=== PATIENT | male | born 1975 | race Caucasian/White ===

== ENCOUNTER 2017-07-02 12:39 | Emergency (ER) | payer MEDICAID ==
[2017-07-02 13:13] LABS: BASOPHILS # (AUTO) 0.1 10^3/uL (0.0-0.1); BASOPHILS % (AUTO) 0.8 %; EOSINOPHILS # (AUTO) 0.2 10^3/uL (0.0-0.7); EOSINOPHILS % (AUTO) 2.5 %; HGB - HEMOGLOBIN 16.1 g/dL (14.0-18.0); LYMPHOCYTES % (AUTO) 34.2 %; MEAN CORPUSCULAR HEMOGLOBIN 31.7 pg (27.0-31.0); MEAN CORPUSCULAR HGB CONC 34.9 g/dL (32.0-36.0); MEAN CORPUSCULAR VOLUME 90.7 fL (80.0-94.0); MEAN PLATELET VOLUME 7.9 fL (7.4-11.4); MONOCYTES # (AUTO) 0.9 10^3/uL (0.0-1.0); MONOCYTES % (AUTO) 9.8 %; NEUTROPHILS # (AUTO) 4.6 10^3/uL (1.5-6.6); NEUTROPHILS % (AUTO) 52.7 %; PLT - PLATELET COUNT 240 10^3/uL (130-450); RED BLOOD COUNT 5.08 10^6/uL (4.70-6.10); RED CELL DISTRIBUTION WIDTH 12.8 % (12.0-15.0); WHITE BLOOD COUNT 8.7 x10^3/uL (4.8-10.8)
--- NOTE | 2017-07-02 13:38 | ED Physician Documentation ---
History of Present Illness - Stated complaint Stated Complaint: SOA/CHEST PX - Chief complaint Chief Complaint: Cardiac - Additonal information Additional information: hx from pt 42 male to ER with int CP and SOA for about a week occurs both at rest and with exertion per pt last up to a minute at a time - per longer than that described as ant left chest discomfort rad to l arm associated soa dizziness diaphoresis resolves spont no fever cough no abd pain NV also has had some LLE popliteal discomfort and some inguinal region upper thigh discomfort no hx CAD - no HTN HLD DM, ex smoker - mom dies of ACS age 50 no hx DVT no recent travel or surgery Review of Systems Constitutional: denies: Fever, Chills Cardiac: reports: Chest pain / pressure, Calf pain Respiratory: reports: Dyspnea GI: denies: Abdominal Pain, Nausea, Vomiting Skin: denies: Rash Musculoskeletal: reports: Extremity pain Neurologic: denies: Generalized weakness Endocrine: denies: Easy bruising / bleeding Immunocompromised: denies: Immunocompromised PD PAST MEDICAL HISTORY - Past Medical History Past Medical History: Yes Respiratory: Asthma GI: GERD - Past Surgical History Ortho: Other - Present Medications Home Medications: Ambulatory Orders Medication Instructions Recorded Confirmed No Known Home Medications [No 07/02/17 07/02/17 Known Home Medications] - Allergies Allergies/Adverse Reactions: Allergies Allergy/AdvReac Type Severity Reaction Status Date / Time No Known Drug Allergies Allergy Verified 07/02/17 12:45 - Social History Does the pt smoke?: No Smoking Status: Never smoker Does the pt drink ETOH?: No Does the pt have substance abuse?: No - Immunizations Immunizations are current?: Yes PD ED PE NORMAL - Vitals Vital signs reviewed: Yes - General General: Alert and oriented X 3 - HEENT HEENT: PERRL - Neck Neck: Supple, no meningeal sign - Cardiac Cardiac: RRR, No murmur - Respiratory Respiratory: No respiratory distress, Clear bilaterally - Abdomen Abdomen: Soft, Non tender - Derm Derm: Normal color - Extremities Extremities: No deformity, Other (mild symm edema, LLE: non tender no cord palpable, nl color) Results - Vitals Vitals: Vital Signs - 24 hr 07/02/17 07/02/17 07/02/17 12:42 14:16 15:02 Temperature 36.7 C Heart Rate 67 66 69 Respiratory 16 16 18 Rate Blood Pressure 164/93 H 124/75 125/72 O2 Saturation 100 98 99 07/02/17 16:01 Temperature Heart Rate 66 Respiratory 14 Rate Blood Pressure 122/84 H O2 Saturation 99 Oxygen O2 Source Room air - EKG (time done) 1245 Rate: Rate (enter#) (67) Rhythm: NSR [place]: Normal Intervals: Normal GA Ischemia: Normal ST segments - Labs Labs: Laboratory Tests 07/02/17 07/02/17 07/02/17 12:52 12:55 12:55 WBC 8.7 RBC 5.08 Hgb 16.1 Hct 46.1 MCV 90.7 MCH 31.7 H MCHC 34.9 RDW 12.8 Plt Count 240 MPV 7.9 Neut # 4.6 Lymph # 3.0 [place] # 0.9 Eos # 0.2 Baso # 0.1 Absolute Nucleated RBC 0.00 Nucleated RBC % 0.0 D-Dimer 224.1 Sodium 135 Potassium 4.0 Chloride 102 Carbon Dioxide 26 Anion Gap 7.0 BUN 10 Creatinine 0.8 Estimated GFR (MDRD) 106 Glucose 80 Calcium 9.3 Total Bilirubin 0.8 AST 87 H ALT 158 H Alkaline Phosphatase 63 Troponin I Total Protein 8.9 H Albumin 4.6 Globulin 4.3 H Albumin/Globulin Ratio 1.1 Lipase 19 L 07/02/17 12:55 WBC RBC Hgb Hct MCV MCH MCHC RDW Plt Count MPV Neut # Lymph # [place] # Eos # Baso # Absolute Nucleated RBC Nucleated RBC % D-Dimer Sodium Potassium Chloride Carbon Dioxide Anion Gap BUN Creatinine Estimated GFR (MDRD) Glucose Calcium Total Bilirubin AST ALT Alkaline Phosphatase Troponin I < 0.04 Total Protein Albumin Globulin Albumin/Globulin Ratio Lipase - Rads (name of study) CXR Radiology: See rad report (NACPD) doppler Radiology: See rad report (neg) PD MEDICAL DECISION MAKING - ED course ED course: neg d dimer and doppler so doubt PE EKG no acute ischemia and trop neg as pains have been brief doubt pt had true ischemia and so serial trops unlikely to be fruitful but may have escalating angina and has risk factors (male prior smoker and and strong fhx CAD young age) will d/w cardio for either transfer very close outpt fup for stress testing spoke to cardio petr unit at [facility] and will accept pt for further testing gave asa no nitro as no CP at this time no BB as might limit stress testing Departure - Departure Disposition: 02 Transfer Acute Care Hosp Clinical Impression: New-onset angina Condition: Fair Comments: Two of liver tests were a little bit elevated - I don't think this would cause your chest pain - but you do need to follow up with your PMD to get the levels rechecked and perhaps run further tests on your liver - in the mean time please avoid tylenol and alcohol as those can worsen liver problems Discharge Date/Time: 07/02/17 17:00
[2017-07-02 13:39] LABS: ALBUMIN 4.6 g/dL (3.2-5.5); ALBUMIN/GLOBULIN RATIO 1.1 (1.0-2.2); BILIRUBIN,TOTAL 0.8 mg/dL (0.2-1.0); CALCIUM 9.3 mg/dL (8.5-10.3); CREATININE 0.8 mg/dL (0.6-1.2); TOTAL PROTEIN 8.9 g/dL (6.7-8.2)
--- NOTE | 2017-07-02 13:44 | XRAY Report ---
EXAM: CHEST RADIOGRAPHY EXAM DATE: 07/02/2017 01:29 PM. CLINICAL HISTORY: CP. COMPARISON: None. TECHNIQUE: 2 views. FINDINGS: Lungs/Pleura: No focal opacities evident. No pleural effusion. No pneumothorax. Normal volumes. Mediastinum: Heart and mediastinal contours are unremarkable. Other: Negative bony structures. IMPRESSION: Negative 2-view chest radiography. [facility] Referring Provider Line: [phone] SITE ID: [id number]
[2017-07-02] MEDS ORDERED: ASPIRIN CHEW 81 MG TABLET PO STA (15:33)
--- NOTE | 2017-07-02 15:48 | Ultrasound Report ---
LEFT LEG VENOUS DUPLEX: 07/02/2017 CLINICAL INDICATION: Leg pain, chest pain, shortness of breath. TECHNIQUE: Real-time sonographic vascular imaging was performed by the shade maker through the left lower extremity utilizing both color flow and Doppler spectral analysis. Multiple membership sales representative static images were saved for review. FINDINGS: A left lower extremity venous sonogram is performed revealing the common femoral, superficial femoral, profunda femoris, and popliteal veins to be adequately visualized without intraluminal defects. There is normal venous compression, augmentation, phasicity, and spontaneity of venous flow. In the calf, the visualized more cephalad portions of posterior tibial and peroneal veins are grossly compressible, without filling defects. IMPRESSION: NO EVIDENCE OF DEEP VENOUS THROMBOSIS. TD: 07/02/2017 15:47
[2017-07-02 16:02] VITALS: BP 122/84
== END 2017-07-02 17:00 | disposition short-term general hospital (02) ==
LOC: ED 12:39
DX: I20.9 Angina pectoris, unspecified (principal); R79.89 Other specified abnormal findings of blood chemistry
CPT/HCPCS: 36415; 71046; 80053; 83690; 84484; 85025; 85379; 93005; 93971; 99284; A9270

== ENCOUNTER 2017-07-02 12:56 | Outpatient (CLI) | payer MEDICAID | END 2017-07-02 12:57 | disposition home or self-care (01) | LOC: RT.S 12:56 | PROVIDERS: ATTEND Nurse Practitioner Family | DX: R07.9 Chest pain, unspecified (principal) | CPT/HCPCS: 93005 ==

== ENCOUNTER 2017-07-02 16:57 | Outpatient (CLI) | payer MEDICAID | END 2017-07-02 16:58 | disposition short-term general hospital (02) | LOC: EMS 16:57 | PROVIDERS: ATTEND Surgery | DX: R07.9 Chest pain, unspecified (principal) | CPT/HCPCS: A0425; A0428 ==

== ENCOUNTER 2017-07-19 08:14 | Outpatient (CLI) | payer MEDICAID ==
[2017-07-19] MEDS ORDERED: ALBUTEROL NEB 2.5 MG/3 ML INH ONE (09:30)
--- NOTE | 2017-07-19 16:53 | Ultrasound Report ---
EXAM: ABDOMEN ULTRASOUND LIMITED, RUQ EXAM DATE: 07/19/2017 08:59 AM. CLINICAL HISTORY: Shortness of breath with elevated LFTs. COMPARISON: None. TECHNIQUE: Real-time scanning was performed with static images obtained. FINDINGS: Study is limited secondary to patient's body habitus. Liver: There is increased echotexture compatible with fatty infiltration. Hepatic span is 19.5 cm. Ma in portal vein flow: Hepatopetal. Gallbladder: Normal. No stones, wall thickening, or sonographic Herron's sign. Biliary System: CBD measures 4.7 mm. No intrahepatic or extrahepatic ductal dilatation. Other: None. IMPRESSION: Limited exam demonstrating fatty liver. Otherwise, unremarkable exam. [facility] Referring Provider Line: [phone] SITE ID: [id number]
== END 2017-07-19 08:15 | disposition home or self-care (01) ==
LOC: DI 08:14
PROVIDERS: ATTEND Nurse Practitioner Family
DX: K76.0 Fatty (change of) liver, not elsewhere classified (principal); R06.02 Shortness of breath; Z87.891 Personal history of nicotine dependence
CPT/HCPCS: 76705; 94060; 94729; J7613

== ENCOUNTER 2017-07-28 09:47 | Outpatient (CLI) | payer MEDICAID | END 2017-07-28 09:48 | disposition home or self-care (01) | LOC: SC 09:47 | PROVIDERS: ATTEND Internal Medicine Pulmonary Disease | DX: G47.33 Obstructive sleep apnea (adult) (pediatric) (principal) | CPT/HCPCS: 99203; 99212 ==

== ENCOUNTER 2017-09-22 09:08 | Outpatient (CLI) | payer MEDICAID | END 2017-09-22 09:09 | disposition home or self-care (01) | LOC: DI 09:08 | PROVIDERS: ATTEND Internal Medicine Cardiovascular Disease | DX: R07.9 Chest pain, unspecified (principal); I10 Essential (primary) hypertension; I51.7 Cardiomegaly; E78.5 Hyperlipidemia, unspecified | CPT/HCPCS: 93306 ==

== ENCOUNTER 2018-06-12 21:35 | Outpatient (CLI) | payer MEDICAID ==
--- NOTE | 2018-06-13 20:46 | Ultrasound Report ---
Reason: HERNIA OF ABDOMINAL CAVITY Procedure Date: 06/12/2018 Accession Number: [id number] / [id number] Procedure: US - Abdomen Limited CPT Code: FULL RESULT: EXAM: ULTRASOUND ABDOMEN LIMITED EXAM DATE: 06/12/2018 10:34 PM. CLINICAL HISTORY: HERNIA OF ABDOMINAL CAVITY. COMPARISON: ABDOMEN LIMITED 07/19/2017 8:28 AM. TECHNIQUE: Real-time sonographic imaging of the area of concern including color-flow, was performed by the certified alcohol and drug counselor. Multiple underwriting service representative static images were saved for review. FINDINGS: Hernia: Positive umbilical hernia with a defect measuring 1.7 cm with associated herniated fat. No herniated bowel. Hernia is partially reducible. Hernia sac measures approximately 2.4 x 2.6 cm. Soft Tissues: Normal. No fluid collections or adenopathy. Other: None. IMPRESSION: Partially reducible umbilical fat-containing hernia. Neck of the hernia measures 1.7 cm. Hernia sac measures 2.4 x 2.6 cm. No associated soft tissue mass, adenopathy or collection. If the patient's symptoms persist or enlarge, recommend CT with contrast evaluation. [facility]
== END 2018-06-12 21:36 | disposition home or self-care (01) ==
LOC: DI 21:35
PROVIDERS: ATTEND Nurse Practitioner Family
DX: K42.9 Umbilical hernia without obstruction or gangrene (principal)
CPT/HCPCS: 76705

== ENCOUNTER 2018-07-08 20:23 | Emergency (ER) | payer MEDICAID ==
--- NOTE | 2018-07-08 20:55 | ED Physician Documentation ---
History of Present Illness - Stated complaint Stated Complaint: RT FOOT/ANKLE/LEG PX - Chief complaint Chief Complaint: General - History obtained from History obtained from: Patient - History of Present Illness Timing: Other (approximately 1 month) Pain level max: 10 Pain level now: 10 Improved by: nothing Worsened by: movement, weight-bearing - Additonal information Additional information: c/o gradual onset, steadily worsening swelling and pain of RLE. This began approximately 1 month ago and involved the foot and ankle, but has gradually spread to mid-pretibial region Review of Systems Constitutional: denies: Fever, Chills, Sweats Cardiac: reports: Pedal edema. denies: Chest pain / pressure Respiratory: denies: Dyspnea Skin: denies: Rash PD PAST MEDICAL HISTORY - Past Medical History Past Medical History: No - Past Surgical History Past Surgical History: No - Present Medications Home Medications: Ambulatory Orders Medication Instructions Recorded Confirmed Albuterol 2.5 mg INH Q4H PRN 07/08/18 07/08/18 Amitriptyline [Elavil] 75 mg PO HS 07/08/18 07/08/18 Cephalexin [Keflex] 500 mg PO Q6H #28 capsule 07/08/18 Colchicine 0.6 mg PO BID #2 capsule 07/08/18 Gabapentin 300 mg PO TID 07/08/18 07/08/18 Indomethacin 50 mg PO TID PRN #14 capsule 07/08/18 Mometasone/Formoterol [Dulera 200 8.8 gm IH 07/08/18 Mcg/5 Mcg Inhaler] Montelukast [Singulair] 10 mg PO QPM 07/08/18 07/08/18 Oxycodone HCl/Acetaminophen 1 - 2 each PO Q6H PRN #14 tablet 07/08/18 [Percocet 5-325 mg Tablet] predniSONE [Deltasone] 10 mg PO [id number] #42 tab 07/08/18 - Allergies Allergies/Adverse Reactions: Allergies Allergy/AdvReac Type Severity Reaction Status Date / Time No Known Drug Allergies Allergy Verified 07/08/18 20:41 PD ED PE NORMAL - Vitals Vital signs reviewed: Yes - General General: Alert and oriented X 3, No acute distress, Well developed/nourished - Cardiac Cardiac: RRR, No murmur - Respiratory Respiratory: No respiratory distress, Clear bilaterally - Derm Derm: Normal color, Warm and dry, No rash PD ED PE EXPANDED - Extremities MIKE LE visual: 1 - swelling Results - Vitals Vitals: Vital Signs - 24 hr 07/08/18 07/08/18 07/09/18 20:36 22:25 00:03 Temperature 36.8 C 36.7 C Heart Rate 118 H 88 82 Respiratory 18 18 18 Rate Blood Pressure 145/91 H 125/74 102/75 O2 Saturation 95 95 97 Oxygen O2 Source Room air - Labs Labs: Laboratory Tests 07/08/18 07/08/18 21:13 21:13 PT 12.8 H INR 1.1 APTT 29.1 Sodium 136 Potassium 4.0 Chloride 98 L Carbon Dioxide 26 Anion Gap 12.0 BUN 19 Creatinine 1.1 Estimated GFR (MDRD) 73 L Glucose 142 H Calcium 9.4 - Rads (name of study) RLE US Radiology: Prelim report reviewed, See rad report PD MEDICAL DECISION MAKING - ED course Complexity details: reviewed results, re-evaluated patient, considered differential, d/w patient ED course: After US performed and resulted, reexamination now shows RLE erythema that is poorly marginated, patchy with some areas of confluence, predominantly on dorsal surface of foot and anterior ankle. The foot is noticeably warmer to touch when compared to other foot and proximal lower leg. There is exquisite tenderness of the right first MTP joint. These findings are c/w gout (and patient indicates the pain and swelling initially were localized to the MTP joint). Departure - Departure Disposition: 01 Home, Self Care Clinical Impression: Gout Condition: Good Instructions: ED Arthritis Gout, ED Diet Gout Follow-Up: Brittaney Luis ARNP [Primary Care Provider] - Prescriptions: Cephalexin [Keflex] 500 mg PO Q6H #28 capsule Colchicine 0.6 mg PO BID #2 capsule Indomethacin 50 mg PO TID PRN #14 capsule PRN Reason: Pain Oxycodone HCl/Acetaminophen [Percocet 5-325 mg Tablet] 1 - 2 each PO Q6H PRN #14 tablet PRN Reason: pain predniSONE [Deltasone] 10 mg PO [id number] #42 tab Comments: You can take the indomethacin the day after you finish the prednisone taper. If you aren't still having symptoms, you do not need to take the indomethacin. Discharge Date/Time: 07/09/18 00:03
[2018-07-08] MEDS ORDERED: HYDROcod/ACETAM 5/325 MG TABLET PO STA (21:02)
[2018-07-08 21:27] LABS: CALCIUM 9.4 mg/dL (8.5-10.3); CREATININE 1.1 mg/dL (0.6-1.2)
[2018-07-08 21:28] LABS: INR 1.1 (0.8-1.2); PT - PROTHROMBIN TIME 12.8 secs (9.9-12.6)
[2018-07-08 21:35] LABS: PARTIAL THROMBOPLASTIN TIME 29.1 secs (24.9-33.3)
--- NOTE | 2018-07-08 22:24 | Ultrasound Report ---
Reason: atraumatic pain, swelling Procedure Date: 07/08/2018 Accession Number: [id number] / [id number] Procedure: US - Duplex Ext Veins Right CPT Code: FULL RESULT: EXAM: RIGHT LOWER EXTREMITY VENOUS ULTRASOUND EXAM DATE: 07/08/2018 09:46 PM. CLINICAL HISTORY: Atraumatic pain, swelling. COMPARISON: None. TECHNIQUE: Real-time sonographic vascular imaging was performed by the distributing clerk through the lower extremity utilizing both color-flow and Doppler spectral analysis. Multiple truck sales representative static images were saved for review. FINDINGS: Common Femoral Vein (CFV): Normal. CFV-GSV Junction: Normal. Profunda Femoral Vein (PFV): Normal. Femoral Vein (FV) Prox: Normal. Femoral Vein (FV) Mid: Normal. Femoral Vein (FV) Dist: Normal. Popliteal Vein: Normal. Posterior Tibial Veins: Limited visualization. Peroneal Veins: Limited visualization. IMPRESSION: No evidence for deep venous thrombosis. [facility]
[2018-07-08] MEDS ORDERED: COLCHICINE 0.6 MG TABLET PO STA (22:41)
[2018-07-08] MEDS ORDERED: cephALEXin 250 MG CAPSULE PO STA (22:41)
[2018-07-08] MEDS ORDERED: HYDROmorphone 1 MG/ML CARPUJECT IM STA (22:49)
[2018-07-08] MEDS ORDERED: predniSONE 20 MG TABLET PO STA (22:49)
[2018-07-08] MEDS ORDERED: oxyCODONE/ACET 5/325 Prepack 4 PO STA (23:49)
[2018-07-09 00:05] VITALS: BP 102/75
== END 2018-07-09 00:03 | disposition home or self-care (01) ==
LOC: ED 20:23
DX: M10.9 Gout, unspecified (principal)
CPT/HCPCS: 36415; 80048; 85610; 85730; 96372; 99283

== ENCOUNTER 2018-07-14 11:56 | Day surgery (SDC) | payer MEDICAID ==
[~2018-07-14 11:56] MED LIST: BUPIVACAINE 0.5% PF 30 ML VIAL ONE
[2018-07-14] MEDS ORDERED: ceFAZolin 3 GM in SODIUM CHLORIDE 0.9% 100ML 100 ML IV ONE (12:00)
[2018-07-14] MEDS ORDERED: LACTATED RINGERS 1,000 ML IV ONE (12:13)
[2018-07-14] MEDS ORDERED: BUPIVACAINE 0.5% PF 30 ML VIAL ONE (12:54)
--- NOTE | 2018-07-14 13:18 | ANESTHESIA ---
Pre-Anesthesia VS, & Labs - Diagnosis Umbilical hernia - Procedure Umbilical hernia repair Vital Signs: Temp Pulse Resp BP Pulse Ox 36.3 C L 77 20 133/77 H 99 07/14/18 12:14 07/14/18 12:14 07/14/18 12:14 07/14/18 12:14 07/14/18 12:14 Height 6 ft 6 in Weight (kg) 184 kg Body Mass Index 44.6 - NPO Other (Water at 0700) - Lab Results Lab results reviewed: Yes Home Medications and Allergies Albuterol 2.5 mg INH Q4H PRN 07/08/18 Amitriptyline [Elavil] 75 mg PO HS 07/08/18 Gabapentin 300 mg PO TID 07/08/18 Mometasone/Formoterol [Dulera 200 Mcg/5 Mcg Inhaler] 8.8 gm IH BID 07/08/18 Montelukast [Singulair] 10 mg PO QPM 07/08/18 Allergies/Adverse Reactions: Allergies Allergy/AdvReac Type Severity Reaction Status Date / Time No Known Drug Allergies Allergy Verified 07/08/18 20:41 Anes History & Medical History - Anesthetic History Anesthesia Complications: reports: No previous complications Family history of Anesthesia Complications: Denies Family history of Malignant Hyperthermia: Denies - Medical History Cardiovascular: reports: Hypertension Pulmonary: reports: Asthma, COPD, Sleep apnea, CPAP use Gastrointestinal: reports: None Urinary: reports: None Neuro: reports: Alzhiemer's Musculoskeletal: reports: Osteoarthritis, Gout Endocrine/Autoimmune: reports: None Blood Disorders: reports: None Skin: reports: None Smoking Status: Former smoker Psychosocial: reports: No issues indicated - Surgical History Orthopedic: Other Exam General: Alert, Oriented x3 Dental: WNL, TMJ Mouth Opening: Greater than 4 Fingerbreadths Neck Mobility: Normal Mallampati classification: II Thyromental Distance: greater than 6 cm Respiratory: Lungs clear Cardiovascular: Regular rate Mental/Cognitive Status: Alert/Oriented X3 Cognitive Status: Within normal limits Plan Anesthesia Type: General Consent for Procedure(s) Verified and Reviewed: Yes Code Status: Attempt Resuscitation ASA classification: 3-Severe systemic disease Is this case an emergency?: No
[2018-07-14] MEDS ORDERED: BUPIVACAINE 0.5% PF 30 ML VIAL SUBQ ONE (14:54)
[2018-07-14] MEDS ORDERED: HYDROcod/ACETAM 5/325 MG TABLET PO PRN (15:31)
[2018-07-14] MEDS ORDERED: HYDROmorphone 0.5 MG/0.5 ML SYRINGE IVP PRN (15:31)
[2018-07-14] MEDS ORDERED: ONDANSETRON 4 MG/2 ML VIAL IVP PRN (15:31)
--- NOTE | 2018-07-14 15:37 | OPERATIVE REPORT ---
Operative Report - General Procedure Date: 07/14/18 Planned Procedure: Umbilical herniorrhaphy Pre-Op Diagnosis: Umbilical hernia Procedure Performed: Umbilical herniorrhaphy with mesh Post Op Diagnosis: Same - Procedure Note Primary Surgeon: Omid Costa MD Anesthesia Provider: Seth Lockhart CRNA Anesthesia Technique: Local (30 mL of half percent Marcaine), MAC IV Fluids (mL): 500 Estimated Blood Loss (mL): 5 Drain/Tube Type: Other (None.) Complications: None. - Other Other Information/Narrative: OPERATIVE DESCRIPTION/REPORT: After verbal and written informed consent was obtained detailing the risks of infection, bleeding requiring transfusion with its risks, nerve injury, and , and after I met with the patient confirming the surgery and the site of the surgery, the patient was brought to the operative suite and placed supine on the operating table. Great care was taken to avoid pressure points to prevent pressure necrosis or nerve injury. Monitoring devices were applied along with TEDs and pneumatic compressive stockings (to prevent DVT). The patient received preoperative antibiotics for surgical prophylaxis. Seth Lockhart CRNA sedated and anesthetized the patient for the entire procedure. The patient was prepped and draped in the usual sterile manner. With the patient draped my initials were clearly visible. A "time in" then confirmed that the paitient was identified with 3 identifiers (name, birthdate and medical record number), the history and physical was in the chart, the signed consent confirming the procedure was in the chart, the patient was in the correct position, the aforementioned prophylactic measures were in place or given, we had the correct personnel and equipment to complete the procedure and that anesthesia, surgery and nursing were given an opportunuty to express any concerns. With the agreement of everyone in the room, we proceeded with the operation. After injecting the area with % Marcaine, a standard curvilinear umbilical incision was made and dissection was carried down to the hernia sac using a combination of Metzenbaum scissors and Bovie electrocautery. The sac was cleared of overlying adherent tissue, and the fascial defect was delineated. The fascia was cleared of any adherent tissue for a distance 1.5 cm from the defect. The sac was placed back into the abdomen. The defect was closed using a Bard Ventralex ST hernia patch (Lot# [id number], Ref# [id number], use by 2019-11-14). This was secured to the fascia using interrupted 2-0 PDS sutures superiorly and inferiorly utilizing the straps and trimming the excess strap. Laterally I placed a 2-0 PDS for additional support. The patient was then given an ``innie by suturing the back of the umbilicus to the fascia using a 2-0 Vicryl. Meticulous hemostasis was obtained using Bovie electrocautery. The skin incision was approximated with a running subcuticular 4-0 Monocryl. After the prep was washed off, Dermabond was applied. A dressing was then applied. At this point a time out was performed that confirmed that all the counts were correct, the procedure that was performed, the blood loss, the IV fluids administered, and the patients condition. Having tolerated the procedure well, the patient was subsequently taken to recovery room in good and stable condition. Dragon disclaimer: This document was created in part using voice recognition technology. Because of the inherent limitations of the system ([employer]'s Dragon Dictate user manual states that the licensee understands that speech recognition is a statistical process and that recognition errors are inherent in the process), occasional same sounding word substitutions and grammatical errors do occur and persist despite proofreading. Please read this document for context.
[2018-07-14] MEDS ORDERED: ONDANSETRON 4 MG/2 ML VIAL IVP ONE (15:40)
[2018-07-14] MEDS ORDERED: MIDAZOLAM 2 MG/2 ML VIAL IVP ONE (15:40)
[2018-07-14] MEDS ORDERED: PROPOFOL 200 MG/20 ML VIAL IVP ONE (15:40)
[2018-07-14] MEDS ORDERED: fentaNYL 100 MCG/2 ML VIAL IVP ONE (15:40)
[2018-07-14] MEDS ORDERED: LIDOCAINE 2% 50 ML MDV IV ONE (15:40)
[2018-07-14] MEDS ORDERED: DEXAMETHASONE 4 MG/ML VIAL IVP ONE (15:40)
[2018-07-14] MEDS ORDERED: KETOROLAC 30 MG/ML VIAL IVP ONE (15:40)
[2018-07-14] MEDS: fentaNYL 100 MCG/2 ML VIAL ONE ×2 (15:55→16:01)
[2018-07-14 16:39] VITALS: BP 121/69
[2018-07-14] MEDS ORDERED: HYDROcod/ACETAM 5/325 MG TABLET ONE (16:39)
== END 2018-07-14 11:57 | disposition home or self-care (01) ==
LOC: SDS 11:56
PROVIDERS: ATTEND Surgery
PROC: 0WUF0JZ Supplement Abdominal Wall with Synthetic Substitute, Open Approach (ICD-10-PCS; principal; 2018-07-14 13:15)
DX: K42.9 Umbilical hernia without obstruction or gangrene (principal); E66.9 Obesity, unspecified; Z68.42 Body mass index [BMI] 45.0-49.9, adult; G47.30 Sleep apnea, unspecified; Z87.891 Personal history of nicotine dependence; J45.909 Unspecified asthma, uncomplicated; M79.671 Pain in right foot; M62.08 Separation of muscle (nontraumatic), other site
CPT/HCPCS: 49585; A9270; C1781; J7120

== ENCOUNTER 2018-12-15 16:11 | Emergency (ER) | payer MEDICAID ==
--- NOTE | 2018-12-15 16:47 | ED Physician Documentation ---
PD HPI BACK INJURY - Stated complaint Stated Complaint: BACK PX/LEG NUMB - History obtained from History obtained from: Patient - History of Present Illness Location: Lower (3 weeks increasing low back pain (in the setting of chronic LBP) with urinary/bowel incontinence. Pain R LB to R leg with numbness in RLE. He declines pain medication at this juncture. He describes the urinary incontinence is a small amount, he does not really know it happening. His says that the bowel incontinence is progressive. The patient is not really aware of it but simply having to clean himself more often because he is covered in stool. He denies saddle anesthesia though. No fevers.) Review of Systems Ten Systems: 10 systems reviewed and negative Constitutional: denies: Fever, Chills Cardiac: denies: Chest pain / pressure, Palpitations Respiratory: denies: Dyspnea, Cough GI: denies: Abdominal Pain, Nausea, Vomiting PD PAST MEDICAL HISTORY - Past Medical History Past Medical History: No Cardiovascular: Hypertension Respiratory: Asthma, COPD, Sleep apnea, CPAP use Neuro: None Endocrine/Autoimmune: None GI: None : None HEENT: None Psych: Depression Musculoskeletal: Osteoarthritis, Gout Derm: None - Past Surgical History Past Surgical History: No General: Other Ortho: Other - Present Medications Home Medications: Ambulatory Orders Medication Instructions Recorded Confirmed Albuterol 2.5 mg INH Q4H PRN 07/08/18 07/10/18 Amitriptyline [Elavil] 75 mg PO HS 07/08/18 07/08/18 Cephalexin [Keflex] 500 mg PO Q6H #28 capsule 07/08/18 07/10/18 Gabapentin 300 mg PO TID 07/08/18 07/10/18 Indomethacin 50 mg PO TID PRN #14 capsule 07/08/18 07/10/18 Mometasone/Formoterol [Dulera 200 8.8 gm IH BID 07/08/18 07/10/18 Mcg/5 Mcg Inhaler] Montelukast [Singulair] 10 mg PO QPM 07/08/18 07/10/18 Oxycodone HCl/Acetaminophen 1 - 2 each PO Q6H PRN #14 tablet 07/08/18 07/10/18 [Percocet 5-325 mg Tablet] predniSONE [Deltasone] 10 mg PO [id number] #42 tab 07/08/18 07/10/18 - Allergies Allergies/Adverse Reactions: Allergies Allergy/AdvReac Type Severity Reaction Status Date / Time No Known Drug Allergies Allergy Verified 12/15/18 16:15 - Social History Does the pt smoke?: No Smoking Status: Former smoker Does the pt drink ETOH?: No Does the pt have substance abuse?: No - Family History Family history: reports: Non contributory - Immunizations Immunizations are current?: Yes - POLST Patient has POLST: No PD ED PE NORMAL - Vitals Vital signs reviewed: Yes - General General: Alert and oriented X 3, No acute distress - HEENT HEENT: PERRL, EOMI - Neck Neck: Supple, no meningeal sign, No bony TTP - Cardiac Cardiac: RRR, No murmur - Respiratory Respiratory: No respiratory distress, Clear bilaterally - Abdomen Abdomen: Normal bowel sounds, Soft, Non tender - Back Back: No CVA TTP, Other (Mild tenderness of the low lumbar spine) - Derm Derm: Normal color, Warm and dry - Extremities Extremities: Other (Numbness in the right lower extremity, seems like an L4 distribution, it is incomplete. He seems to have symmetric reflexes and fairly normal strength throughout the lower extremities.) - Neuro Neuro: Alert and oriented X 3, Normal speech Results - Vitals Vitals: Vital Signs - 24 hr 12/15/18 16:15 Temperature 36.8 C Heart Rate 93 Respiratory 18 Rate Blood Pressure 181/88 H O2 Saturation 96 Oxygen O2 Source Room air PD MEDICAL DECISION MAKING - ED course ED course: This is a 43-year-old gentleman with mostly right radicular symptoms in the setting of acute on chronic low back pain but now with worsening overflow incontinence which although not diagnostic for, is certainly concerning for a cauda equina type syndrome. He was administered 10 mg of IV Decadron. He declined pain medications here. I am unable to perform an urgent MRI this late in the day here and as such we called the emergency department in [place] and he was accepted there for further care by Dr. Griffiths. He is stable for transport and cobras were completed. Note that I did recommend EMS transfer for interhospital transport, the patient refused this and will have his drive him. He signed AMA only for EMS transport for interhospital transfer. Departure - Departure Disposition: 02 Transfer Acute Care Hosp Clinical Impression: Cauda equina syndrome Back pain Qualifiers: Back pain location: low back pain Chronicity: acute Back pain laterality: bilateral Sciatica presence: with sciatica Sciatica laterality: sciatica of right side Qualified Code(s): M54.41 - Lumbago with sciatica, right side Sciatica Qualifiers: Laterality: right Qualified Code(s): M54.31 - Sciatica, right side Condition: Serious
[2018-12-15] MEDS ORDERED: DEXAMETHASONE 10 MG/ML VIAL IVP STA (16:57)
[2018-12-15 17:40] VITALS: BP 148/86
== END 2018-12-15 17:50 | disposition short-term general hospital (02) ==
LOC: ED 16:11
DX: G83.4 Cauda equina syndrome (principal); I10 Essential (primary) hypertension; Z87.891 Personal history of nicotine dependence
CPT/HCPCS: 96374; 99284

== ENCOUNTER 2019-02-04 18:17 | Emergency (ER) | payer MEDICAID ==
[2019-02-04 18:28] VITALS: BP 101/85
[2019-02-04] MEDS ORDERED: predniSONE 20 MG TABLET PO STA (18:29)
[2019-02-04] MEDS ORDERED: IPRATROPIUM/ALBUTEROL 3 ML NEB INH STA (18:29)
--- NOTE | 2019-02-04 18:31 | ED Physician Documentation ---
PD HPI DYSPNEA - Stated complaint Stated Complaint: Short of breath - Chief complaint Chief Complaint: Resp - History obtained from History obtained from: Patient - History of Present Illness Timing - onset: Other (43-year-old gentleman with history of asthma. At baseline takes Dulera, Singulair, and Pro Air as needed. Would last 3 days has had increasing wheezing and shortness of breath as well as nonproductive cough. Mild pedal edema. No fevers.) Review of Systems Constitutional: denies: Fever, Chills Cardiac: reports: Pedal edema. denies: Chest pain / pressure, Palpitations, Calf pain Respiratory: reports: Dyspnea, Cough, Wheezing PD PAST MEDICAL HISTORY - Past Medical History Past Medical History: Yes Cardiovascular: Hypertension Respiratory: Asthma, COPD, Sleep apnea, CPAP use Neuro: None Endocrine/Autoimmune: None GI: None : None HEENT: None Psych: Depression Musculoskeletal: Osteoarthritis, Gout Derm: None - Past Surgical History Past Surgical History: Yes General: Other Ortho: Other - Present Medications Home Medications: Ambulatory Orders Medication Instructions Recorded Confirmed Albuterol 2.5 mg INH Q4H PRN 07/08/18 02/04/19 Amitriptyline [Elavil] 75 mg PO HS 07/08/18 02/04/19 Gabapentin 300 mg PO TID 07/08/18 02/04/19 Indomethacin 50 mg PO TID PRN #14 capsule 07/08/18 02/04/19 Mometasone/Formoterol [Dulera 200 8.8 gm IH BID 07/08/18 02/04/19 Mcg/5 Mcg Inhaler] Montelukast [Singulair] 10 mg PO QPM 07/08/18 02/04/19 Albuterol Sulfate [Proair Hfa 1 - 2 puffs INH Q4H PRN #1 inhaler 02/04/19 Inhaler] Benzonatate [Tessalon Perle] 100 - 200 mg PO TID PRN #30 capsule 02/04/19 Diclofenac Sodium 75 mg PO BID 02/04/19 02/04/19 predniSONE [Deltasone] 20 mg PO [id number] #21 tab 02/04/19 - Allergies Allergies/Adverse Reactions: Allergies Allergy/AdvReac Type Severity Reaction Status Date / Time No Known Drug Allergies Allergy Verified 02/04/19 18:28 - Social History Does the pt smoke?: Yes Smoking Status: Current every day smoker Does the pt drink ETOH?: No Does the pt have substance abuse?: No - Immunizations Immunizations are current?: Yes - POLST Patient has POLST: No PD ED PE NORMAL - Vitals Vital signs reviewed: Yes - General General: Alert and oriented X 3, No acute distress - Neck Neck: Supple, no meningeal sign, No bony TTP, No JVD - Cardiac Cardiac: RRR, No murmur, No gallop - Respiratory Respiratory: Other (Mild expiratory wheezing, minimally labored but speaking in full sentences. Nothing focal.) - Derm Derm: Normal color, Warm and dry - Extremities Extremities: Other (No obvious pedal edema) - Neuro Neuro: Alert and oriented X 3, Normal speech Results - Vitals Vitals: Vital Signs - 24 hr 02/04/19 02/04/19 18:21 18:46 Temperature 36.9 C Heart Rate 76 78 Respiratory 29 H 18 Rate Blood Pressure 101/85 H O2 Saturation 96 Oxygen O2 Source Room air PD MEDICAL DECISION MAKING - ED course ED course: This young man presents with apparent asthma exacerbation. There is no evidence of CHF, pneumonia, PE. [place] much better after DuoNeb and this was repeated in short order. Also given steroids and Tessalon. Departure - Departure Disposition: 01 Home, Self Care Clinical Impression: Asthma Qualifiers: Asthma severity: moderate Asthma persistence: persistent Asthma complication type: with acute exacerbation Qualified Code(s): J45.41 - Moderate persistent asthma with (acute) exacerbation Condition: Good Record reviewed to determine appropriate education?: Yes Instructions: Asthma Dc Prescriptions: Albuterol Sulfate [Proair Hfa Inhaler] 1 - 2 puffs INH Q4H PRN #1 inhaler PRN Reason: Shortness Of Air/Wheezing Benzonatate [Tessalon Perle] 100 - 200 mg PO TID PRN #30 capsule PRN Reason: Cough predniSONE [Deltasone] 20 mg PO [id number] #21 tab Comments: Call your doctor to arrange a follow-up appointment, make the next available appointment. In the interim, return anytime if worse or if new symptoms develop.
--- NOTE | 2019-02-04 19:31 | XRAY Report ---
Reason: dyspnea Procedure Date: 02/04/2019 Accession Number: [id number] / [id number] Procedure: XR - Chest 2 View X-Ray CPT Code: 96809 FULL RESULT: EXAM: CHEST RADIOGRAPHY EXAM DATE: 02/04/2019 06:55 PM. CLINICAL HISTORY: Increasing shortness of breath for 3 days. COMPARISON: CHEST 2 VIEW 07/02/2017 1:15 PM. TECHNIQUE: 2 views. FINDINGS: Lungs/Pleura: No focal opacities evident. No pleural effusion. No pneumothorax. Borderline low lung volumes. Mediastinum: Heart and mediastinal contours are unremarkable. Other: None. IMPRESSION: Normal 2-view chest radiography. RADIA
[2019-02-04] MEDS ORDERED: ALBUTEROL NEB 2.5 MG/3 ML INH STA (19:36)
[2019-02-04] MEDS ORDERED: BENZONATATE 100 MG CAPSULE PO STA (19:38)
== END 2019-02-04 20:04 | disposition home or self-care (01) ==
LOC: ED 18:17
DX: J45.41 Moderate persistent asthma with (acute) exacerbation (principal); F17.200 Nicotine dependence, unspecified, uncomplicated; I10 Essential (primary) hypertension
CPT/HCPCS: 71046; 94640; 94664; 99283; 99284; A9270; J7512

== ENCOUNTER 2019-06-04 14:46 | Outpatient (CLI) | payer MEDICAID ==
--- NOTE | 2019-06-04 16:23 | CT Report ---
Reason: RADICULAPOTHY Procedure Date: 06/04/2019 Accession Number: [id number] / [id number] Procedure: CT - LUMBAR SPINE WO CPT Code: Final Report FULL RESULT: EXAM: CT LUMBAR SPINE WITHOUT CONTRAST EXAM DATE: 06/04/2019 03:07 PM. CLINICAL HISTORY: Chronic lumbar pain. COMPARISONS: None. TECHNIQUE: Thin-section axial images were acquired of the lumbar spine from T12 to S1 without contrast. Post-processing: Coronal and sagittal reformats. Other: None. In accordance with CT protocol optimization, one or more of the following dose reduction techniques were utilized for this exam: automated exposure control, adjustment of mA and/or KV based on patient size, or use of iterative reconstructive technique. FINDINGS: Alignment: 10 degrees dextroscoliosis between L1-L2 and L5-S1. L3-L4 shows 3.8 mm of anterolisthesis. Bones: Five [id number] lumbar vertebral bodies are present. Endplate sclerosis anteriorly at L4-L5. On the right side there is also endplate sclerosis at L5-S1. Disk Levels/Facets: T12-L1: Unremarkable. L1-L2: Hypertrophic facets. No central or foraminal stenosis. L2-L3: Mild broad-based disk bulge and hypertrophic facets. Severe bilateral foraminal stenosis. L3-L4: Disk space height loss, quite prominent facets. No central stenosis. Moderate bilateral foraminal stenosis. L4-L5: Disk space height loss, marginal arthrosis, hypertrophic facets. Severe bilateral foraminal stenosis, no central stenosis. L5-S1: Disk space height loss, marginal arthrosis, very prominent facets. There is severe right foraminal stenosis with flattening of the exiting right L5 root. Series 7 image 72. Moderate to severe left foraminal stenosis also seen. Musculature: Normal. No fatty atrophy. Other: None. IMPRESSION: 1. 10 degrees dextroscoliosis between L1-L2 and L5-S1. Report shows 3.8 mm of anterolisthesis. Endplate sclerosis seen anteriorly at L4-L5 and on the right side at L5-S1. No fractures. 2. L2-L3 shows severe bilateral foraminal stenosis. 3. L3-L4 shows moderate bilateral foraminal stenosis. 4. L4-L5 shows severe bilateral foraminal stenosis. No central stenosis. 5. L5-S1 shows very severe right foraminal stenosis with flattening of the exiting right L5 root. Moderate to severe left foraminal stenosis also seen. RADIA
== END 2019-06-04 14:47 | disposition home or self-care (01) ==
LOC: DI 14:46
PROVIDERS: ATTEND Physician Assistant
DX: Z01.818 Encounter for other preprocedural examination (principal); M51.36 Other intervertebral disc degeneration, lumbar region; M51.37 Other intervertebral disc degeneration, lumbosacral region; M48.061 Spinal stenosis, lumbar region without neurogenic claudication; M48.07 Spinal stenosis, lumbosacral region; M47.816 Spondylosis without myelopathy or radiculopathy, lumbar region; M47.817 Spondylosis without myelopathy or radiculopathy, lumbosacral region; M41.9 Scoliosis, unspecified; M43.16 Spondylolisthesis, lumbar region
CPT/HCPCS: 72131

== ENCOUNTER 2019-09-02 15:58 | Outpatient (CLI) | payer MEDICAID ==
--- NOTE | 2019-09-02 20:35 | XRAY Report ---
Reason: ARTHRODESIS Procedure Date: 09/02/2019 Accession Number: [id number] / [id number] Procedure: XR - Lumbar Spine Complete CPT Code: Final Report FULL RESULT: EXAM: LUMBOSACRAL SPINE RADIOGRAPHY EXAM DATE: 09/02/2019 04:04 PM. CLINICAL HISTORY: 44-year-old male. ARTHRODESIS. COMPARISONS: LUMBAR SPINE W/O 06/04/2019 3:08 PM. TECHNIQUE: 3 views. FINDINGS: Alignment: Mild rotatory dextroscoliosis of the lumbar spine, Navarro angle measuring 6 degrees. Grade 1 retrolisthesis L4 on L5 measuring 4 mm. Grade 1 retrolisthesis L5 on S1 measuring 4 mm. Grade 1 retrolisthesis L3 on L4 measuring 4 mm. Bones: Five zjh-svw-rvqvpwj lumbar vertebral bodies are present. No evidence of acute fracture. Compared to the prior study the patient is status post interval L2-L3 posterior fusion as well as L2-L3 interbody fusion. The hardware construct appears intact with no evidence of fracture or loosening. No radiographic evidence of solid bony bridging across the L2-L3 level. Disks: Moderate disk height loss L4-L5, L5-S1. Facets: Mild to moderate facet arthropathy L4-L5, L5-S1. Sacroiliac Joints: Unremarkable. Soft Tissues: Normal. The visualized bowel gas pattern is normal. IMPRESSION: 1. Compared to the prior study the patient is status post interval L2-L3 posterior fusion as well as L2-L3 interbody fusion. The hardware construct appears intact with no evidence of fracture or loosening. No radiographic evidence of solid bony bridging across the L2-L3 level. 2. No acute fracture or traumatic subluxation. Mild to moderate multilevel degenerative spondylosis. 3. Mild rotatory dextroscoliosis of the lumbar spine, Navarro angle measuring 6 degrees. Grade 1 retrolisthesis L4 on L5 measuring 4 mm. Grade 1 retrolisthesis L5 on S1 measuring 4 mm. Grade 1 retrolisthesis L3 on L4 measuring 4 mm. RADIA
== END 2019-09-02 15:59 | disposition home or self-care (01) ==
LOC: DI 15:58
PROVIDERS: ATTEND Physician Assistant
DX: Z09 Encounter for follow-up examination after completed treatment for conditions other than malignant neoplasm (principal); M47.816 Spondylosis without myelopathy or radiculopathy, lumbar region; M47.817 Spondylosis without myelopathy or radiculopathy, lumbosacral region; M51.36 Other intervertebral disc degeneration, lumbar region; M51.37 Other intervertebral disc degeneration, lumbosacral region; Z98.1 Arthrodesis status; M41.9 Scoliosis, unspecified; M43.16 Spondylolisthesis, lumbar region; M43.17 Spondylolisthesis, lumbosacral region
CPT/HCPCS: 72110

== ENCOUNTER 2020-01-07 09:59 | Outpatient (CLI) | payer MEDICAID ==
--- NOTE | 2020-01-07 17:21 | Ultrasound Report ---
PROCEDURE: Abdomen Limited INDICATIONS: LIVER FUNCTION TESTS ABNORMAL TECHNIQUE: Real-time focused scanning was performed of the abdomen, with image documentation. COMPARISON: Abdominal ultrasound 09/22/2017 and 06/12/2018. FINDINGS: Prominently hyperechoic liver echotexture indicating fatty infiltration with enlargement o f the liver at 23.2 cm craniocaudad. No mass lesion within the liver is found. The gallbladder appear s normal. The common bile duct is normal in caliber at 6 mm. The pancreas is obscured by bowel gas, b tiffany habitus and overlying hyperechoic liver echotexture. Right kidney appears free of hydronephrosis or nephrolithiasis. IMPRESSION: Limited study targeted to the right abdomen/upper abdomen at physician request. There is prominent fa tty infiltration throughout the liver which is enlarged. No ascites or varices are found. No renal ab normalities seen on the right. The pancreas is not seen due to overlying bowel gas, body habitus and hyperechoic liver echotexture. Depending on the clinical status of the patient more accurate assessme nt could be obtained utilizing contrast-enhanced CT scanning, if clinically warranted. Reviewed by: Dony Longo MD on 01/07/2020 5:20 PM PDT Approved by: Dony Longo MD on 01/07/2020 5:20 PM PDT Station ID: [id number]
== END 2020-01-07 10:00 | disposition home or self-care (01) ==
LOC: DI 09:59
PROVIDERS: ATTEND Nurse Practitioner Family
DX: K76.0 Fatty (change of) liver, not elsewhere classified (principal)
CPT/HCPCS: 76705

== ENCOUNTER 2020-05-16 19:47 | Outpatient (CLI) | payer MEDICAID ==
--- NOTE | 2020-05-17 08:07 | XRAY Report ---
PROCEDURE: Chest 2 View X-Ray INDICATIONS: ASTHMA TECHNIQUE: 2 view(s) of the chest. COMPARISON: None. FINDINGS: Surgical changes and devices: None. Lungs and pleura: No pleural effusions or pneumothorax. Lungs are clear. Mediastinum: Mediastinal contours are normal. Heart size is normal. Bones and chest wall: No suspicious bony abnormalities. Soft tissues appear unremarkable. IMPRESSION: Mildly reduced inspiratory volume, no evidence of pneumonia. Reviewed by: Dony Longo MD on 05/17/2020 8:06 AM [facility] Approved by: Dony Longo MD on 05/17/2020 8:06 AM [facility] Station ID: [id number]
--- NOTE | 2020-05-17 08:09 | Ultrasound Report ---
PROCEDURE: Duplex Ext Veins Right INDICATIONS: LOCALIZED EDEMA TECHNIQUE: Real-time imaging, as well as color and pulse Doppler interrogation, were performed of the lower extr emity deep veins from the inguinal ligament to the popliteal fossa. COMPARISON: None. FINDINGS: The deep veins are normally compressible, and free of intraluminal thrombus. Color and pu lse Doppler demonstrate normal phasic intraluminal flow. There is normal augmentation response to di stal compression maneuver. IMPRESSION: No DVT found right lower extremity. Quality of visualization is somewhat limited by larg e body habitus. The calf veins are not well visualized but where seen appear patent. Reviewed by: Dony Longo MD on 05/17/2020 8:08 AM PST Approved by: Dony Longo MD on 05/17/2020 8:08 AM PST Station ID: [id number]
== END 2020-05-16 19:48 | disposition home or self-care (01) ==
LOC: DI 19:47
PROVIDERS: ATTEND Nurse Practitioner Family
DX: R60.0 Localized edema (principal); J45.901 Unspecified asthma with (acute) exacerbation

== ENCOUNTER 2020-05-16 19:49 | Outpatient (CLI) | payer MEDICAID | END 2020-05-16 19:50 | disposition home or self-care (01) | LOC: LAB 19:49 | PROVIDERS: ATTEND Nurse Practitioner Family | DX: J44.1 Chronic obstructive pulmonary disease with (acute) exacerbation (principal) | CPT/HCPCS: 83880; 85379 ==

== ENCOUNTER 2022-07-14 12:28 | Emergency (ER) | payer MEDICAID ==
[2022-07-14 12:48] VITALS: BP 156/83
--- NOTE | 2022-07-14 13:12 | ED Physician Documentation ---
PD HPI UPPER EXT INJURY - Stated complaint Stated Complaint: LT SHOULD PX - Chief complaint Chief Complaint: Ext Problem - History obtained from History obtained from: Patient - Additonal information Additional information: Patient is a 47-year-old male presenting for evaluation of left shoulder pain that has been ongoing for the past several weeks. He denies any known injury or trauma. He woke up with morning with some discomfort in his neck and felt tightness in the shoulder region. He has been persistent and becoming more frequent since then. At times he reports feeling a tingling sensation in his arm which is not currently present. He saw his PCP on and PCP thought it was related to a muscle strain so advised use of naproxen which patient is not taking it. Patient reports noticing discomfort With all range of motion.Pain is not currently traveling anywhere. He denies chest pain or difficulty breathing, neck pain, headache, prior neck issues, Lower extremity pain. Review of Systems Constitutional: denies: Fever Nose: denies: Congestion Cardiac: denies: Chest pain / pressure Respiratory: denies: Dyspnea GI: denies: Abdominal Pain Musculoskeletal: reports: Joint pain Neurologic: denies: Headache PD PAST MEDICAL HISTORY - Past Medical History Cardiovascular: Hypertension Respiratory: Asthma, COPD, Sleep apnea, CPAP use Neuro: None Endocrine/Autoimmune: None GI: None : None HEENT: None Psych: Depression Musculoskeletal: Osteoarthritis, Gout Derm: None - Past Surgical History Past Surgical History: Yes General: Other Ortho: Other - Present Medications Home Medications: Ambulatory Orders Medication Instructions Recorded Confirmed Albuterol 2.5 mg INH Q4H PRN 07/08/18 02/04/19 Amitriptyline [Elavil] 75 mg PO HS 07/08/18 02/04/19 Gabapentin 300 mg PO TID 07/08/18 02/04/19 Indomethacin 50 mg PO TID PRN #14 capsule 07/08/18 02/04/19 Mometasone/Formoterol [Dulera 200 8.8 gm IH BID 07/08/18 02/04/19 Mcg/5 Mcg Inhaler] Montelukast [Singulair] 10 mg PO QPM 07/08/18 02/04/19 Albuterol Sulfate [Proair Hfa 1 - 2 puffs INH Q4H PRN #1 inhaler 02/04/19 Inhaler] Benzonatate [Tessalon Perle] 100 - 200 mg PO TID PRN #30 capsule 02/04/19 Diclofenac Sodium 75 mg PO BID 02/04/19 02/04/19 predniSONE [Deltasone] 20 mg PO [id number] #21 tab 02/04/19 predniSONE [Deltasone] 20 mg PO [id number] #21 tab 07/14/22 - Allergies Allergies/Adverse Reactions: Allergies Allergy/AdvReac Type Severity Reaction Status Date / Time No Known Drug Allergies Allergy Verified 07/14/22 12:49 - Social History Does the pt smoke?: Yes Smoking Status: Current every day smoker Does the pt drink ETOH?: No Does the pt have substance abuse?: No - Immunizations Immunizations are current?: Yes - POLST Patient has POLST: No PD ED PE NORMAL - General General: Alert and oriented X 3, No acute distress, Well developed/nourished - HEENT HEENT: Atraumatic - Neck Neck: Supple, no meningeal sign, No bony TTP (normal ROM of neck without pain) - Cardiac Cardiac: RRR, Strong equal pulses - Respiratory Respiratory: No respiratory distress, Clear bilaterally - Abdomen Abdomen: Soft, Non tender - Extremities Extremities: No deformity, Other (Pain on range of motion of left shoulder, no deformity, able to touch opposite shoulder with his left hand, pain with abduction and moving arm behind his back. ) - Neuro Neuro: No motor deficit, No sensory deficit Results - Vitals Vitals: Vital Signs - 24 hr 07/14/22 12:45 Temperature 36.1 C L Heart Rate 81 Respiratory 18 Rate Blood Pressure 156/83 H O2 Saturation 97 Oxygen O2 Source Room air PD Medical Decision Making - ED course ED course: Pt with atraumatic L shoulder pain. No bony tenderness but has pain on ROM. Offered Xray to evaluate bones and alignment but pt declined. He feels shooting pain sometimes and feels he may have a pinched nerve. On exam strength and sensation are preserved and extremity is well perfused. No neck tenderness or pain on ROM of neck. At this time, I do not feel pt requires emergent MRI for his symptoms. Given radicular symptoms at times, discussed course of steroids which patient is agreeable to. Pt counseled on concerning symptoms to return for as well as need for follow up. Departure - Departure Disposition: 01 Home, Self Care Clinical Impression: Left shoulder pain Condition: Stable Instructions: ED Cervical Radiculopathy, ED Shoulder Pain [facility] Prescriptions: predniSONE [Deltasone] 20 mg PO [id number] #21 tab Comments: You Were evaluated for pain In your left shoulder.We did discuss the possibilities of an x-ray but you have declined at this time. Your symptoms could be related to a pinched nerve versus muscle or ligament injury. I will send a prescription for steroid course to [facility] in [place].Please continue with use of lidocaine patches and anti-inflammatories along with the steroids. I would recommend close follow-up with your primary care doctor if symptoms or not improving or certainly return to the ER if you have any worsening symptoms. Your prescription was sent to [facility] in [place]. Discharge Date/Time: 07/14/22 13:15
== END 2022-07-14 13:15 | disposition home or self-care (01) ==
LOC: ED 12:28
DX: M25.512 Pain in left shoulder (principal); F17.200 Nicotine dependence, unspecified, uncomplicated
CPT/HCPCS: 99282; 99283

== ENCOUNTER 2022-10-19 12:40 | Outpatient (CLI) | payer MEDICAID ==
--- NOTE | 2022-10-19 16:32 | CT Report ---
PROCEDURE: ANGIO CHEST W/WO INDICATIONS: PULMONARY EMPHYSEMA CONTRAST: 80ml omni 350 TECHNIQUE: After the administration of intravenous contrast, 2 mm axial images were acquired from the pulmonary apices to the posterior costophrenic angles during the arterial phase. In addition, 1 mm lung kernel and 5 mm soft tissue kernel reconstructions were performed. 3-dimensional coronal oblique maximum int ensity projection (MIP) reformats, 8 mm axial MIP, and 5 mm coronal and sagittal MPR reformats were t hen performed through the thorax. For radiation dose reduction, the following was used: automated exp osure control, adjustment of mA and/or kV according to patient size. COMPARISON: Chest radiograph dated 05/16/2020 FINDINGS: Image quality: Excellent. Large vessels: No filling defects within the opacified pulmonary arteries, accounting for motion and contrast timing. No evidence of acute aortic syndrome or aortic aneurysm. Lungs and pleura: No consolidation. No pleural effusions. No pneumothorax. No suspicious pulmonary n odules which require follow up. Mild dependent atelectasis in posterior aspect of bilateral lower lob es are seen. Mediastinum: Heart size is normal. No pericardial effusions. No mediastinal adenopathy by size criter ia. Chest wall and lower neck: Thyroid is unremarkable. No axillary or supraclavicular adenopathy by size . Bones: No aggressive osseous abnormality. Upper Abdomen: Unremarkable. IMPRESSION: 1. No central pulmonary embolism. No thoracic aortic aneurysm or dissection. 2. Mild bibasilar dependent atelectasis. Bilateral lungs are otherwise clear. 3. No mediastinal or hilar lymphadenopathy. Reviewed by: Haroon Oates MD on 10/19/2022 4:30 PM PDT Approved by: Haroon Oates MD on 10/19/2022 4:30 PM PDT Station ID: [id number]
== END 2022-10-19 12:41 | disposition home or self-care (01) ==
LOC: DI 12:40
PROVIDERS: ATTEND Nurse Practitioner Family
DX: J98.11 Atelectasis (principal)
CPT/HCPCS: 71275; Q9967